=== PATIENT | female | born 1985 | race African-American/Black ===

== ENCOUNTER 2016-06-14 17:02 | Emergency (ER) | payer MEDICAID ==
[2016-06-14 17:12] VITALS: BP 165/107; PULSE 98; RESP 18; TEMP 98.2; O2SAT 97
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
== END 2016-06-14 17:56 | disposition home or self-care (01) ==
LOC: EDBD 17:02
DX: R19.05 Periumbilic swelling, mass or lump (principal)